=== PATIENT | female | born 1940 ===

== ENCOUNTER → 2023-02-21 06:00 | Outpatient (CLI) | payer OTHER ==
[~2023-02-21] VITALS: Ht 152.4 cm; Wt 90.7 kg
[~2023-02-21 06:00] MED LIST: ENALAPRIL MALEAT5 MG PO; LASIX20 MG PO; LIPITOR40 MG PO; PLAVIX75 MG PO; SYNTHROID100 MCG PO; TOPROL XL50 M1 PO
== END | disposition home or self-care (01) ==
LOC: LAB 06:00 → ADM 11:15 → CIR.AMB 02-22 11:15 → EDSTATUS 02-22 11:15 → CIR.AMB 02-22 14:00
PROVIDERS: ATTEND Orthopaedic Surgery Hand Surgery
DX: Z01.810 Encounter for preprocedural cardiovascular examination (principal); Z20.822 Contact with and (suspected) exposure to COVID-19; E11.9 Type 2 diabetes mellitus without complications; E78.00 Pure hypercholesterolemia, unspecified; E78.3 Hyperchylomicronemia; D65 Disseminated intravascular coagulation [defibrination syndrome]; D66 Hereditary factor VIII deficiency; N39.0 Urinary tract infection, site not specified; I10 Essential (primary) hypertension; S52.532A Colles' fracture of left radius, initial encounter for closed fracture